=== PATIENT | female | born 1975 | race Caucasian/White ===

== ENCOUNTER 2018-07-29 12:22 | Outpatient (CLI) | payer SELFPAY ==
[2018-07-29 13:08] VITALS: BMI 38.0
[2018-07-29] MEDS: Lactated Ringers 1,000 ML 125 ML IV (13:20)
[2018-07-29] MEDS: Terbutaline 1 MG/ML Vial 0.25 MG SC (13:47)
[2018-07-29 16:17] VITALS: BP 146/76; PULSE 96; RESP 18; TEMP 36.2; O2SAT 93
--- NOTE | 2018-08-06 06:13 | OB.TRI.NOTE ---
- Problem List (1) Breech presentation Status: Acute History of Present Illness Date of Service: 07/30/18 Was patient seen by the physician?: Yes Reason For Visit: VERSION Final MEDINA: 08/14/18 Gestational age: 38 Weeks and 6 Days History of Present Illness: 43 yo @ 39 weeks presents for ECV due to breech presentation. She has been receiving care by candy wrapping machine operator Cheli Arnold. Her due date is based on an estimated LMP and was consistent with an ultrasound done at 24 weeks. She denies any vaginal bleeding or abnormal discharge, feels good fm. Allergies No Known Allergies Allergy (Verified 08/06/18 14:43) - Pertinent Past Medical History Surgical History: Past Surgical History (Last Updated 08/06/18 @ 15:24 by Terese Castorena) delivery delivered Laboratory Studies: Laboratory Tests 07/29/18 Range/Units 13:25 Blood Type A POSITIVE Antibody Screen NEGATIVE Review of Systems Constitutional: Denies: Fever, Malaise Eyes: Denies: Blurred vision, Vision Change HEENT: Denies: Head Aches, Visual Changes Cardiovascular: Denies: Chest Pain, Palpitations Respiratory: Denies: Cough, Shortness of Breath, Wheezing Gastrointestinal: Denies: Abdominal Pain, Diarrhea, Nausea, Vomiting Genitourinary: Denies: Dysuria, Hematuria Musculoskeletal: Denies: Joint Pain, Muscle pain Skin: Denies: Lesions, Rash Neurological: Denies: Blurred vision, Focal weakness, Headaches Psychiatric: Denies: Anxiety, Depression Endocrine: Denies: Heat/ Cold Intolerance Hematologic/ Lymphatic: Denies: Easy Bruising, Easy Bleeding Physical Exam Vitals: Vital Signs Temp Pulse Resp BP Pulse Ox 97.1 F L 96 18 146/76 H 93 07/29/18 16:17 07/29/18 16:17 07/29/18 16:17 07/29/18 16:17 07/29/18 16:17 General: Alert, Cooperative, No apparent distress HEENT: Atraumatic, Normocephalic. Negative for: Thyromegaly, Lymphadenopathy Cardiovascular: Regular rate Lungs: Normal air movement Abdomen: Soft, Non Tender, Gravid Neurological: Deep Tendon Reflexes 2+/4 and Symmetrical, Neuro grossly intact. Negative for: Clonus FUR STYLIST: Normal external genitalia. Negative for: Vulvar lesions Estimated gestational size: Appropriate for gestational size Presentation: Cephalic NST - FHR Rate Baby A Baseline: 140 Variability:: Moderate Accelerations:: 15 x 15 Decelerations:: None NST Reactive:: Yes FHR Category:: Category I Uterine Activity:: no regualr Impression/Plan 43 yo @ 38 weeks breech presentation patient counseled regarding risks benefit and alternatives and she wishes to proceed with ECV.
--- NOTE | 2018-08-06 06:18 | OB.TRI.HP_ITS ---
- Problem List (1) Breech presentation Status: Acute History of Present Illness Date of Service: 07/30/18 Was patient seen by the physician?: Yes Reason For Visit: VERSION Final MEDINA: 08/14/18 Gestational age: 38 Weeks and 6 Days History of Present Illness: 43 yo @ 39 weeks presents for ECV due to breech presentation. 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 Her due date is based on an estimated LMP and was consistent with an ultrasound done at 24 weeks. She denies any vaginal bleeding or abnormal discharge, feels good fm. Allergies No Known Allergies Allergy (Verified 08/06/18 14:43) - Pertinent Past Medical History Surgical History: Past Surgical History (Last Updated 08/06/18 @ 15:24 by Terese Castorena) delivery delivered Laboratory Studies: Laboratory Tests 07/29/18 Range/Units 13:25 Blood Type A POSITIVE Antibody Screen NEGATIVE Review of Systems Constitutional: Denies: Fever, Malaise Eyes: Denies: Blurred vision, Vision Change HEENT: Denies: Head Aches, Visual Changes Cardiovascular: Denies: Chest Pain, Palpitations Respiratory: Denies: Cough, Shortness of Breath, Wheezing Gastrointestinal: Denies: Abdominal Pain, Diarrhea, Nausea, Vomiting Genitourinary: Denies: Dysuria, Hematuria Musculoskeletal: Denies: Joint Pain, Muscle pain Skin: Denies: Lesions, Rash Neurological: Denies: Blurred vision, Focal weakness, Headaches Psychiatric: Denies: Anxiety, Depression Endocrine: Denies: Heat/ Cold Intolerance Hematologic/ Lymphatic: Denies: Easy Bruising, Easy Bleeding Physical Exam Vitals: Vital Signs Temp Pulse Resp BP Pulse Ox 97.1 F L 96 18 146/76 H 93 07/29/18 16:17 07/29/18 16:17 07/29/18 16:17 07/29/18 16:17 07/29/18 16:17 General: Alert, Cooperative, No apparent distress HEENT: Atraumatic, Normocephalic. Negative for: Thyromegaly, Lymphadenopathy Cardiovascular: Regular rate Lungs: Normal air movement Abdomen: Soft, Non Tender, Gravid Neurological: Deep Tendon Reflexes 2+/4 and Symmetrical, Neuro grossly intact. Negative for: Clonus PATROL MOTHER: Normal external genitalia. Negative for: Vulvar lesions Estimated gestational size: Appropriate for gestational size Presentation: Cephalic NST - FHR Rate Baby A Baseline: 140 Variability:: Moderate Accelerations:: 15 x 15 Decelerations:: None NST Reactive:: Yes FHR Category:: Category I Uterine Activity:: no regualr Impression/Plan 43 yo @ 38 weeks breech presentation patient counseled regarding risks benefit and alternatives and she wishes to proceed with ECV.
--- NOTE | 2018-08-06 20:55 | PCM.OPRPT ---
Problem List (1) Breech presentation Status: Acute Report of Operation Date of Procedure: 07/29/18 Pre-Operative Diagnosis: breech Post-Operative Diagnosis: same Surgery/Procedure Performed:: external cephalic version Description of Surgical Findings:: breech footling head maternal right Type of Anesthesia:: None Special Medications: terbutaline Description of Procedure: after IV access was achieved and reactive NST was obtained, terbutaline was given and upward pressure on the buttox presenting in the pelvis was lifted up and then constant pressure was applied to encourage a forward roll. multiple attempts were made and thena backwards roll was attempted but were unsuccessful. patient will be scheduled as an outpatient for primary . - Complications none
== END 2018-07-29 16:30 | disposition home or self-care (01) ==
LOC: WPOUT 12:25 → WP 12:25
PROVIDERS: Referring Provider Obstetrics & Gynecology; Visit Provider Obstetrics & Gynecology
DX: O32.8XX0 Maternal care for other malpresentation of fetus, not applicable or unspecified (principal); Z3A.39 39 weeks gestation of pregnancy
CPT/HCPCS: 96360; 96361 ×2; 36415; 59025; 59412; 76815; 86850; 86900; 96372; 99218; J7120; G0378

== ENCOUNTER → 2018-08-06 15:27 | Outpatient (CLI) | payer OTHER, SELFPAY ==
[2018-08-06 14:48] VITALS: BMI 38.0
[2018-08-06 16:09] LABS: Absolute Neutrophil Count 4.7 X10^3/uL (2.0-7.7); Basophil# 0.02 X10^3/uL; Basophil% 0.3 % (0-1); Eosinophil# 0.13 X10^3/uL; Eosinophils% 1.9 % (0-5); Hematocrit 34.1 % (37-47); Hemoglobin 11.7 g/dl (12.0-15.0); Lymphocyte % 22.4 % (19-41); Mean Corp Hgb Conc 34.3 g/gl (32-36); Mean Corpuscular Hgb 32.1 pg (27.0-32.0); Mean Corpuscular Volume 93.7 fL (81-99); Mean Platelet Vol. 9.3 fl (6.2-12.0); Monocyte# 0.37 X10^3/uL; Monocyte% 5.5 % (0-10); Neutrophil # 4.65 X10^3/uL (2.7-7.7); Neutrophil % 69.6 % (47-70); Platelet Count 272 K/mm3 (150-450); RBC Distribution Width CV 13.6 % (11.6-14.6); RBC Distribution Width SD 44.3 fl (35.1-43.9); Red Blood Count 3.64 M/mm3 (4.2-5.4); White Blood Count 6.7 K/mm3 (4.4-11.0)
[2018-08-06 16:20] LABS: POSITIVE COUNT NO; POSITIVE DIFFERENTIAL NO; POSITIVE MORPHOLOGY NO
[2018-08-06 17:18] LABS: HIV - WCH Non-Reactive (Nonreactive); Rubella IgG > 500.0 IU/mL
[2018-08-06 20:23] LABS: Chlamydia Trachomatis by PCR Negative (Negative); Neisserai gonorrhoeae by PCR Negative (Negative); Probe Check PASS; Sample Adequacy Control PASS; Specimen Processing Control PASS
[2018-08-08 00:50] LABS: Rapid Plasmin Reagin (RPR) NONREACTIVE (NONREACTIVE)
[2018-08-08 11:35] LABS: HEPATITIS B SURFACE AG Negative (Negative)
== END ==
PROVIDERS: Referring Provider Obstetrics & Gynecology; Visit Provider Obstetrics & Gynecology
DX: O32.1XX0 Maternal care for breech presentation, not applicable or unspecified (principal); Z3A.00 Weeks of gestation of pregnancy not specified
CPT/HCPCS: 36415; 85025; 86592; 86703; 86762; 86850; 86900; 87081; 87086; 87340; 87491; 87591

== ENCOUNTER 2018-08-08 07:30 | Inpatient (IN) | payer SELFPAY ==
[2018-08-06 14:48] VITALS: BMI 38.0
[2018-08-08] VITALS (21 sets, daily range): BP systolic 100–139; BP diastolic 50–86; PULSE 61–84; RESP 14–18; TEMP 36.1–37.4; O2SAT 92–97; BMI 39.6
[2018-08-08] MEDS: Lactated Ringers 1,000 ML 150 ML IV (07:55)
[2018-08-08 08:13] LABS: Hematocrit 37.7 % (37-47); Mean Corp Hgb Conc 34.5 g/gl (32-36); Mean Corpuscular Hgb 32.2 pg (27.0-32.0); Mean Corpuscular Volume 93.3 fL (81-99); Mean Platelet Vol. 9.3 fl (6.2-12.0); Platelet Count 275 K/mm3 (150-450); RBC Distribution Width CV 13.7 % (11.6-14.6); RBC Distribution Width SD 44.8 fl (35.1-43.9); Red Blood Count 4.04 M/mm3 (4.2-5.4); White Blood Count 7.4 K/mm3 (4.4-11.0)
[2018-08-08 08:15] LABS: Scan Indicated on CBC? Y/N NO
[2018-08-08] MEDS: Sodium Citrate/Citric Acid 30 ML UDC PO (08:31)
--- NOTE | 2018-08-08 08:51 | PCM.HP.OB ---
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 (3) Breech presentation Status: Acute Qualifiers: History Date of Admission: 08/08/18 Final MEDINA: 08/14/18 Gestational age: 39 Weeks and 1 Days History of this : This is a 43 year-old, at 39 weeks gestational age presents with ROM IAL breech. Surgical History: Surgical History (Last Updated 08/06/18 @ 15:24 by Terese Castorena) delivery delivered O82 Allergies No Known Allergies Allergy (Verified 08/06/18 14:43) Home Medications: Home Medications Calcium 3 cap PO DAILY 07/29/18 Prenatabs FA 4 cap PO DAILY 07/29/18 Smoking Status: Never smoker Alcohol: None Number of Fetus(es): 1 Heart Tracin moderate variability reactive no decelerations category I tracing [place]: regular History Past Pregnancies: Past PregnanciesPregancy History 9 Elective abortions Hx Para 6 Spontaneous abortions 2 Hx # Term Pregnancies Ectopic pregnancies Hx # Pregnancies Multiple births # of living children Past Pregnancies Del. Date Name GA/Weeks Outcome Route Bth Weight Infant Gen Labor Lgth Anesthesia Del Locatn Provider FOB Unknown live - full term Unknown live - full term Unknown live - full term Unknown live - full term Unknown live - full term Unknown live - full term HPI f/u from failed Version last week: Details: ALAN ANDERSON is a 43 year old who presents for routine OB visit. OB Visit MEDINA Calculator Estimated Delivery Date 08/14/18 Based on LMP (uncertain) 11/07/17 Current WG 39w 0d Number 1 Expected Delivery Route/Plan RLTCS BTL Expected Delivery Method: Repeat Section Review of Systems Constitutional: Denies: Fever, Malaise Eyes: Denies: Blurred vision, Vision Change HEENT: Denies: Head Aches, Visual Changes Cardiovascular: Denies: Chest Pain, Palpitations Respiratory: Denies: Cough, Shortness of Breath, Wheezing Gastrointestinal: Denies: Abdominal Pain, Diarrhea, Nausea, Vomiting Genitourinary: Denies: Dysuria, Hematuria Musculoskeletal: Denies: Joint Pain, Muscle pain Skin: Denies: Lesions, Rash Neurological: Denies: Blurred vision, Focal weakness, Headaches Psychiatric: Denies: Anxiety, Depression Endocrine: Denies: Heat/ Cold Intolerance Hematologic/ Lymphatic: Denies: Easy Bruising, Easy Bleeding Physical Exam General: Alert, Cooperative, No apparent distress HEENT: Atraumatic, Normocephalic. Negative for: Thyromegaly, Lymphadenopathy Cardiovascular: Regular rate Lungs: Normal air movement Abdomen: Soft, Non Tender, Gravid Neurological: Deep Tendon Reflexes 2+/4 and Symmetrical, Neuro grossly intact. Negative for: Clonus MARKETING SUPPORT SPECIALIST: Normal external genitalia. Negative for: Vulvar lesions Estimated gestational size: Appropriate for gestational size Presentation: Cephalic Assessment/Plan All Active Problems (Last Reviewed 08/06/18 @ 15:24 by Terese Castorena) History of delivery (Acute) Supervision of normal (Acute) Breech presentation (Acute) This is a 43 year-old, , at 39 weeks gestational age presents IAL breech plan RLTCS and BTL desires sterilization
--- NOTE | 2018-08-08 08:53 | PCM.OPRPT ---
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 (3) Breech presentation Status: Acute Qualifiers: Report of Operation Date of Procedure: 08/08/18 Pre-Operative Diagnosis: breech ial previous c section sterilization Post-Operative Diagnosis: same Surgery/Procedure Performed:: rltcs btl with filshie clips Description of Surgical Findings:: nl uterus tubes ovaries breech infant staff mine warfare officer: Kayla Ayala Type of Anesthesia:: Spinal Special Medications: non3e Specimen's removed: infant Drains: harris Estimated Blood Loss (mL): 600 Fluids Replaced: crystalloid Description of Procedure: Spinal anesthesia was placed without difficulty. Harris catheter was placed. The patient was placed in the dorsal supine position with leftward tilt. Patient was prepped and draped in the normal sterile fashion. Pfannenstiel skin incision was made with the scalpel and carried through to the underlying layer of fascia with the scalpel. Fascia was nicked in the midline and the incision extended laterally. The rectus bellies were dissected off superiorly and inferiorly with out complication both sharply and bluntly. The peritoneum was entered digitally. The incision was stretched and a low transverse uterine incision was made with the scalpel. The 's head was delivered atraumatically followed by the anterior and posterior shoulders without complication the rest of the delivered. The cord was clamped and cut and the infant was handed off to awaiting nurse. The placenta was delivered spontaneously immediately following and was noted to be intact and have a three-vessel cord. The uterus was exteriorized cleared of all clots and debris, and the incision was closed in a single layer closure using #1 Monocryl. bilateral fallopian tubes were transected with the filshie clip devices. The uterus was returned to the maternal abdomen and gutters were cleared of all clots and debris. The ovaries and fallopian tubes were noted to be within normal limits. The peritoneum was closed with 3-0 Monocryl in a running fashion. Fascia was closed with 0 PDS in a running fashion. Subcutaneous tissue was copiously irrigated and the skin was closed with 3-0 Monocryl in a subcuticular fashion. Mepilex dressing was applied without complication. Patient was taken to recovery in stable condition. Grafts/Implants Used: none - Complications none - Admit VTE Documentation VTE Present on Admission: No VTE Mechan Device Prophylaxis: SCD's
[2018-08-08] MEDS: Lactated Ringers 1,000 ML 999 ML IV (08:55)
--- NOTE | 2018-08-08 08:56 | OP.PCM_ITS ---
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 (3) Breech presentation Status: Acute Qualifiers: Report of Operation Date of Procedure: 08/08/18 Pre-Operative Diagnosis: breech ial previous c section sterilization Post-Operative Diagnosis: same Surgery/Procedure Performed:: rltcs btl with filshie clips Description of Surgical Findings:: nl uterus tubes ovaries breech infant operations tech: Kayla Ayala Type of Anesthesia:: Spinal Special Medications: non3e Specimen's removed: infant Drains: harris Estimated Blood Loss (mL): 600 Fluids Replaced: crystalloid Description of Procedure: Spinal anesthesia was placed without difficulty. Harris catheter was placed. The patient was placed in the dorsal supine position with leftward tilt. Patient was prepped and draped in the normal sterile fashion. Pfannenstiel skin incision was made with the scalpel and carried through to the underlying layer of fascia with the scalpel. Fascia was nicked in the midline and the incision extended laterally. The rectus bellies were dissected off superiorly and inferiorly with out complication both sharply and bluntly. The peritoneum was entered digitally. The incision was stretched and a low transverse uterine incision was made with the scalpel. The 's head was delivered atraumatically followed by the anterior and posterior shoulders without complication the rest of the delivered. The cord was clamped and cut and the infant was handed off to awaiting nurse. The placenta was delivered spontaneously immediately following and was noted to be intact and have a three- vessel cord. The uterus was exteriorized cleared of all clots and debris, and the incision was closed in a single layer closure using #1 Monocryl. bilateral fallopian tubes were transected with the filshie clip devices. The uterus was returned to the maternal abdomen and gutters were cleared of all clots and debris. The ovaries and fallopian tubes were noted to be within normal limits. The peritoneum was closed with 3-0 Monocryl in a running fashion. Fascia was closed with 0 PDS in a running fashion. Subcutaneous tissue was copiously irrigated and the skin was closed with 3-0 Monocryl in a subcuticular fashion. Mepilex dressing was applied without complication. Patient was taken to recovery in stable condition. Grafts/Implants Used: none - Complications none - Admit VTE Documentation VTE Present on Admission: No VTE Mechan Device Prophylaxis: SCD's
--- NOTE | 2018-08-08 08:57 | DCINST_ITS ---
Discharge Diet: No Restrictions Discharge Activity: May Not Drive - for 2 weeks, May not drive while taking narcotic pain medications., May Shower, May Take a Tub Bath - in 7 days May resume sexual activity in: 4-6 weeks Lifting Restrictions: 20 pounds Additional Activity Instructions:: Nothing in the vagina for 4-6 weeks. You may return to work/school in 6 weeks. Call your doctor if your incision/area has: Continuous Slow Oozing, Sudden Increased Bleeding, Increased Pain/ Swelling, Increased Redness, Foul Smelling Discharge Call your doctor if you observe: Fever of 101 or Higher, Using more than one pad per hour - for 2 hours Suture Line Care: Avoid Pulling/Pushing, Avoid Pinching/Bending Cleanse incision/area with: Keep Dressing Clean & Dry Additional Instructions: If you experience any of the following, contact your healthcare provider. * Bleeding that soaks a pad every hour for 2 hours * Fever 100.4 or higher * Unrelieved incision or abdominal pain * Swelling, redness, discharge or bleeding from your incision or episiotomy site * Your incision begins to separate * Problems urinating (including inability to urinate or burning while urinating). * Visual changes * Severe headache * Flu-like symptoms * Pain or redness in one of both of your breasts * Pain, warmth, tenderness or swelling in your legs, especially the calf area * Frequent nausea and vomiting * Symptoms of depression or anxiety If you experience any of the following, call 911 or go to the nearest Emergency Room. * Chest pain * Problems breathing * Seizure activity * Partial or complete paralysis of a body part, slurred speech, weakness or drooping of the face, or a sudden inability to walk or hold your balance Allergies/Adverse Reactions: Allergies No Known Allergies Allergy (Verified 08/06/18 14:43) Medications to take at Discharge Calcium 3 cap PO DAILY 07/29/18 Prenatabs FA 4 cap PO DAILY 07/29/18 Ibuprofen [Motrin] 600 mg PO Q6H PRN PRN #30 tab 08/08/18 Oxycodone HCl/Acetaminophen [Percocet 5-325] 1 - 2 tab PO Q4H PRN PRN 7 Days #15 tab 08/08/18 The following prescriptions were given: Oxycodone HCl/Acetaminophen [Percocet 5-325] 1 - 2 tab PO Q4H PRN PRN 7 Days #15 tab PRN Reason: Pain Ibuprofen [Motrin] 600 mg PO Q6H PRN PRN #30 tab PRN Reason: Pain Follow-Up: Call to make an appointment with your doctor for an incision check in 1-2 weeks. You will also need a 6 week post- follow up appointment. Test results from this visit will be discussed in further detail at your follow- up appointment, if applicable. Please Follow Up With: Olive Campa MD - Call to make an appointment for an incision check in 1-2 [phone] When: You will need a post- check in 6 weeks. Primary Care Physician: Care Physician,No Primary [Primary Care Provider] -
[2018-08-08] MEDS: Cefazolin 2 GM in 0.9% Normal Saline 100 ML IV (09:00)
[2018-08-08] MEDS: Oxytocin 30 units/NS 500 ml 30 UNITS/500 ML IV.SOLN 167 UNITS IV (09:17)
[2018-08-08] MEDS: Methylergonovine 0.2 MG/ML Ampul IM (10:44)
[2018-08-08] MEDS: Lactated Ringers 1,000 ML 100 ML IV ×2 (13:29→21:59)
[2018-08-08] MEDS: Ondansetron 4 MG/2 ML Vial IV (16:10)
[2018-08-08] MEDS: 0.9% Saline Lock 10 ML Syringe IV (16:10)
[2018-08-08] MEDS: Ketorolac 30 MG/ML Syringe IV ×2 (16:10→22:15)
[2018-08-09] VITALS: BP 106/59; PULSE 80; RESP 18; TEMP 37; O2SAT 92
[2018-08-09] MEDS: Lactated Ringers 1,000 ML 100 ML IV (00:11)
[2018-08-09 02:10] VITALS: PULSE 77; RESP 16; O2SAT 94
[2018-08-09 04:05] VITALS: BP 120/62; PULSE 85; RESP 18; TEMP 37.1; O2SAT 95
[2018-08-09] MEDS: Ketorolac 30 MG/ML Syringe IV ×3 (04:13→16:47)
[2018-08-09 06:10] VITALS: PULSE 86; RESP 16; O2SAT 93
[2018-08-09 06:11] LABS: Hematocrit 34.6 % (37-47); Hemoglobin 11.6 g/dl (12.0-15.0); Mean Corp Hgb Conc 33.5 g/gl (32-36); Mean Corpuscular Hgb 31.6 pg (27.0-32.0); Mean Corpuscular Volume 94.3 fL (81-99); Platelet Count 194 K/mm3 (150-450); RBC Distribution Width CV 14.2 % (11.6-14.6); RBC Distribution Width SD 48.4 fl (35.1-43.9); Red Blood Count 3.67 M/mm3 (4.2-5.4); White Blood Count 8.6 K/mm3 (4.4-11.0)
[2018-08-09 06:12] LABS: Scan Indicated on CBC? Y/N NO
[2018-08-09 08:00] VITALS: BP 118/64; PULSE 79; RESP 16; TEMP 37.5; O2SAT 93
[2018-08-09] MEDS: Senna/Docusate Sodium 1 Tablet PO (09:35)
[2018-08-09] MEDS: 0.9% Saline Lock 10 ML Syringe IV ×2 (09:36→16:48)
--- NOTE | 2018-08-09 12:14 | PCM.PN.OB ---
Subjective: doing well no complaints pain controlled no CP SOB N V ambulating well tolerating po lochia moderate, going well - Physical Exam General: Alert, Oriented x3 Vital Signs Temp Pulse Resp BP Pulse Ox 99.5 F H 79 16 118/64 93 08/09/18 08:00 08/09/18 08:00 08/09/18 08:00 08/09/18 08:00 08/09/18 08:00 Oxygen Flow Rate (L/min) 1 Oxygen Delivery Method Room Air Weight: 230 lb 13.184 oz Body Mass Index (BMI) 39.6 Intake and Output for Last 24 Hours 08/07/18 08/08/18 08/09/18 23:59 23:59 23:59 Intake Total 4093 / 4093 1443 / 1443 Output Total 3088 / 3088 1200 / 1200 Balance 1005 / 1005 243 / 243 Laboratory Tests Past 24 Hrs 08/09/18 06:00 WBC 8.6 RBC 3.67 L Hgb 11.6 L Hct 34.6 L MCV 94.3 MCH 31.6 MCHC 33.5 RDW 14.2 RDW Differential 48.4 H Plt Count 194 MPV 9.0 Medical Necessity - Tobacco Use Smoking Status: Never smoker Assessment/Plan All Active Problems (Last Reviewed 08/06/18 @ 15:24 by Terese Castorena) History of delivery (Acute) Supervision of normal (Acute) Breech presentation (Acute) s/p LTCS PPD # 1 1. routine post care 2. breast feeding- support given 3. rh positive patient desires early discharge- meets criteria will dc home
[2018-08-09] MEDS: oxyCODONE 5 MG Tablet PO (14:14)
[2018-08-09 16:00] VITALS: BP 135/75; PULSE 88; RESP 16; TEMP 37.4
--- NOTE | 2018-08-09 19:09 | NURSING ---
1900 Discharged to home via wheelchair to car with . Patient requesting to go home today, states she feels fine and is a home person and will sleep and feel better at her own home. States she feels able to care for her baby. Ambulating independently. Denies pain or discomfort.
== END 2018-08-09 19:00 | disposition home or self-care (01) | DRG 785 ==
LOC: WPOUT 07:35 → WP 09:34
PROVIDERS: Admitting Provider Obstetrics & Gynecology; Referring Provider Obstetrics & Gynecology; Visit Provider Obstetrics & Gynecology
DX: O64.1XX0 Obstructed labor due to breech presentation, not applicable or unspecified (principal); Z3A.39 39 weeks gestation of pregnancy; Z37.0 Single live birth; O34.211 Maternal care for low transverse scar from previous cesarean delivery; N85.8 Other specified noninflammatory disorders of uterus; Z30.2 Encounter for sterilization
CPT/HCPCS: 59025; 59050; 85027; 86850; 86900; 99218; J7120; A4216; G0378; J2405